=== PATIENT | male | born 1975 | race African-American/Black ===

== ENCOUNTER 2020-09-22 08:50 | Emergency (ER) | payer MEDICAID ==
[2020-09-22] MEDS ORDERED: Baclofen 10 MG Tab PO ONE (09:07)
--- NOTE | 2020-09-22 09:07 | EDM.PDOC ---
ED HPI GENERAL MEDICAL PROBLEM - General Chief Complaint: Back Pain or Injury Stated Complaint: MEDICAL [facility] Time Seen by Provider: 09/22/20 09:02 Source of Information: Reports: Patient History Limitations: Reports: No Limitations - History of Present Illness INITIAL COMMENTS - FREE TEXT/NARRATIVE: pt arrived withpain in the lower back and pain radiating down both legs but much worse on the left. 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 ) Duration: Hour(s): Location: Reports: Back, Lower Extremity, Left, Lower Extremity, Right, Other (pt has pain going down both legs. ) Associated Symptoms: Reports: Other (pt does not have numbness or tingling in the legs. ) Lower Back Pain Score (Numeric/FACES): 10 - Related Data Allergies Allergy/AdvReac Type Severity Reaction Status Date / Time No Known Allergies Allergy Verified 09/22/20 08:53 Home Meds: Home Meds NK [No Known Home Meds] 09/22/20 [History] Past Medical History HEENT History: Reports: None Musculoskeletal History: Reports: Arthritis - Past Surgical History Head Surgeries/Procedures: Reports: None HEENT Surgical History: Reports: Tonsillectomy Musculoskeletal Surgical History: Reports: None Dermatological Surgical History: Reports: None Social & Family History - Tobacco Use Tobacco Use Status *Q: Current Every Day Tobacco User Years of Tobacco use: 20 Packs/Tins Daily: 1 Used Tobacco, but Quit: No Second Hand Smoke Exposure: No - Caffeine Use Caffeine Use: Reports: Coffee - Alcohol Use Days Per Week of Alcohol Use: 3 Number of Drinks Per Day: 2 Total Drinks Per Week: 6 - Recreational Drug Use Recreational Drug Use: No ED ROS GENERAL - Review of Systems Review Of Systems: See Below Constitutional: Reports: No Symptoms HEENT: Reports: No Symptoms Respiratory: Reports: No Symptoms Cardiovascular: Reports: No Symptoms Endocrine: Reports: No Symptoms GI/Abdominal: Reports: No Symptoms : Reports: No Symptoms Musculoskeletal: Reports: Other ( severe pain in the lower back and down both legs, much more on the left. ) ED EXAM, UPPER BACK/NECK PAIN - Physical Exam Exam: See Below Text/Narrative:: pt arrived having very severe low back pain. 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 He did not actually fall. He did this on WED. He noted severe pain on thur and this has gotten progressively worse. He has had some back problems in the past and has gone to the chiropractor and got relief. He feels like this pain is quite different. Exam Limited By: No Limitations General Appearance: Alert, Anxious, Severe Distress Ears Exam: Normal TMs Nose Exam: Normal Inspection Throat/Mouth Exam: Normal Inspection Head Exam: Atraumatic Neck Exam: Non-Tender Cardiovascular/Respiratory: Regular Rate, Rhythm GI/Abdominal: Soft, Non-Tender (Male) Exam: Deferred Rectal (Males) Exam: Deferred Back Exam: Normal Inspection Extremities: Normal Inspection Neurologic: Alert Psychiatric: Anxious Course - Vital Signs Last Recorded V/S: Last Vital Signs Temp 36.6 C 09/22/20 08:54 Pulse 65 09/22/20 08:54 Resp 16 09/22/20 08:54 BP 129/70 09/22/20 08:54 Pulse Ox 100 09/22/20 08:54 - Orders/Labs/Meds Meds: Medications Discontinued Medications Generic Name Dose Route Start Last Admin Trade Name Sergio PRN Reason Stop Dose Admin Baclofen 10 mg 09/22/20 09:07 09/22/20 09:19 Lioresal PO 09/22/20 09:08 10 mg ONETIME ONE Administration Bisacodyl 10 mg 09/22/20 11:43 09/22/20 11:59 Dulcolax RECTAL 09/22/20 11:44 10 mg ONETIME ONE Administration Diazepam 2 mg 09/22/20 11:37 09/22/20 11:51 Valium IVPUSH 09/22/20 11:38 2 mg ONETIME ONE Administration Hydromorphone HCl 1 mg 09/22/20 10:15 09/22/20 10:19 Dilaudid IM 09/22/20 10:16 1 mg ONETIME ONE Administration Hydromorphone HCl 0.5 mg 09/22/20 12:37 09/22/20 12:49 Dilaudid IVPUSH 09/22/20 12:38 0.5 mg ONETIME ONE Administration Ketorolac Tromethamine 60 mg 09/22/20 09:08 09/22/20 09:19 Toradol IM 09/22/20 09:09 60 mg ONETIME ONE Administration Magnesium Citrate 296 ml 09/22/20 10:57 09/22/20 11:11 Citrate Of Magnesia PO 09/22/20 10:58 296 ml ONETIME ONE Administration Magnesium Citrate 296 ml 09/22/20 14:20 09/22/20 14:30 Citrate Of Magnesia PO 09/22/20 14:21 296 ml ONETIME ONE Administration Oxycodone/Acetaminophen 1 tab 09/22/20 09:08 09/22/20 09:19 Percocet 325-5 Mg PO 09/22/20 09:09 1 tab ONETIME ONE Administration Sodium Chloride 10 ml 09/22/20 11:36 09/22/20 11:58 Saline Flush FLUSH 10 ml ASDIRECTED PRN Administration Keep Vein Open - Re-Assessments/Exams Free Text/Narrative Re-Assessment/Exam: 09/22/20 14:08 pt had lumbar spine done which shows good alighnment. He also was noted to have a distended bowel and alot of stool. He has been given mag citrate 1 bottle, ducolax supp and a fleets and he has not had results On the xray there is stool up high and air in the rectum He has received alot of pain meds and he is finally able to move. will send him home with another bottle of mag citrate. Departure - Departure Time of Disposition: 11:25 Disposition: Home, Self-Care 01 Condition: Fair Clinical Impression: Lumbar back pain with radiculopathy affecting left lower extremity - Discharge Information Instructions: Acute Back Pain, Adult Referrals: PCP,None [Primary Care Provider] - Forms: ED Department Discharge Care Plan Goals: ice packs alternating with moist heat to the left lower back. baclofen 10 mg tid to relax muscles, percocet 5/325 q6h prn for pain, drink the 2nd bottle of mag citrate that was sent home with the pt. rtc tomorrow for a lumbar MRI The pain meds will cause constipation so pt needs to eat pruns and hisgh fiber foods. Sepsis Event Note (ED) - Evaluation Sepsis Screening Result: No Definite Risk
[2020-09-22] MEDS ORDERED: Ketorolac 60 MG/2 ML SDV IM ONE (09:08)
[2020-09-22] MEDS ORDERED: Acetaminophen/oxyCODONE 325-5 MG Tab PO ONE (09:08)
[2020-09-22] MEDS ORDERED: HYDROmorphone 1 MG/ML Syringe IM ONE (10:15)
[2020-09-22] MEDS ORDERED: Magnesium Citrate Solution 296 ML Bottle PO ONE ×2 (10:57→14:20)
[2020-09-22] MEDS ORDERED: Sodium Chloride 0.9% 10 ML Syringe FLUSH PRN (11:36)
[2020-09-22] MEDS ORDERED: Bisacodyl 10 MG Supp RECTAL ONE (11:43)
[2020-09-22] MEDS ORDERED: HYDROmorphone 0.5 MG/0.5 ML Syringe IVPUSH ONE (12:37)
--- NOTE | 2020-09-23 09:12 | CR ---
Lumbar Spine Min 4V CLINICAL HISTORY: Low back pain FINDINGS: There are 6 lumbar type vertebrae The vertebral body heights are maintained. There is some mild spondylosis at "S1". There is disc space narrowing at "S1-2". There is a minimal dextroscoliosis. IMPRESSION: Degenerative disc changes at L5 with spondylosis
== END 2020-09-22 14:42 | disposition home or self-care (01) ==
LOC: JP.ED 08:50
DX: M54.16 Radiculopathy, lumbar region (principal); F17.210 Nicotine dependence, cigarettes, uncomplicated
CPT/HCPCS: 72110; 96372; 96374; 96375; 99284; A9270; J1170; J1885; J3360; 99283

== ENCOUNTER 2022-06-19 07:26 | Emergency (ER) | payer MEDICAID ==
[2022-06-19] MEDS ORDERED: Ketorolac 30 MG/ML SDV IM ONE (08:22)
[2022-06-19] MEDS ORDERED: Cyclobenzaprine 10 MG Tab PO ONE (08:22)
== END 2022-06-19 10:42 | disposition home or self-care (01) ==
LOC: JP.ED 07:26
DX: M54.16 Radiculopathy, lumbar region (principal); F17.210 Nicotine dependence, cigarettes, uncomplicated
CPT/HCPCS: 96372; 99283; A9270; J1885

== ENCOUNTER 2022-07-06 16:08 | Emergency (ER) | payer MEDICAID | END 2022-07-06 17:43 | disposition left against medical advice (07) | LOC: JP.ED 16:08 | DX: Z53.21 Procedure and treatment not carried out due to patient leaving prior to being seen by health care provider (principal) ==

== ENCOUNTER 2022-07-06 21:54 | Emergency (ER) | payer MEDICAID ==
[2022-07-06] MEDS ORDERED: HYDROmorphone 1 MG/ML Syringe IM ONE (23:35)
== END 2022-07-07 00:11 | disposition home or self-care (01) ==
LOC: JP.ED 21:54
DX: M54.16 Radiculopathy, lumbar region (principal)
CPT/HCPCS: 96372; 99283; J1170